=== PATIENT | male | born 1995 | race Caucasian/White ===

== ENCOUNTER 2017-09-28 19:04 | Emergency (ER) | payer OTHER ==
[~2017-09-28] VITALS: Ht 190.5 cm; Wt 87.4 kg
[~2017-09-28 19:04] MED LIST: NOHOMEMEDS; Tylenol/Codeine #3 PO
[2017-09-28 19:31] LABS: HEMATOCRIT 49.9 % (38.0-50.0); HEMOGLOBIN 17.5 G/DL (12.5-16.6); MCH 31.1 PG (29.0-34.0); MCHC 35.1 G/DL (30.0-36.0); MCV 88.8 FL (86-99); PLATELET COUNT 215 K/uL (156-360); RBC DIS.WIDTH-SD 38.7 % (39-53); RED BLOOD COUNT 5.62 M/uL (4.00-5.50); WHITE BLOOD COUNT 12.1 K/uL (4.1-10.2)
[2017-09-28 19:39] LABS: ALBUMIN 4.7 g/dL (3.2-4.8)
[2017-09-28 19:40] LABS: CHLORIDE 106 mEq/L (99-109); SODIUM 145 mEq/L (136-147)
[2017-09-28 19:42] LABS: GLUCOSE 106 mg/dL (70-99); TOTAL PROTEIN 7.8 g/dL (6.4-8.3)
[2017-09-28 19:44] LABS: TOTAL BILIRUBIN 0.9 mg/dL (0.0-1.0)
[2017-09-28 19:45] LABS: ALKALINE PHOSPHATASE 75 IU/L (3-129)
[2017-09-28 19:46] LABS: CREATININE 1.1 mg/dL (0.6-1.3); GFR ESTIMATE (CALCULATED) > 59 mL/min/
[2017-09-28 19:47] LABS: AST (GOT) 23 IU/L (2-34); UREA NITROGEN (BUN) 16 mg/dL (9-23)
[2017-09-28 19:48] LABS: ALT (GPT) 30 IU/L (3-49)
[2017-09-28 19:49] LABS: LIPASE 7 U/L (1.0-51.0)
[2017-09-28] MEDS ORDERED: ZOFRAN4 MG PO (22:29)
[2017-09-29 00:06] VITALS: BP 108/75
== END 2017-09-29 00:07 | disposition home or self-care (01) ==
LOC: EME 19:04
DX: E86.0 Dehydration (principal); R11.2 Nausea with vomiting, unspecified; R19.7 Diarrhea, unspecified
CPT/HCPCS: 80053; 83690; 85027; 99281; 99285; J2270